=== PATIENT | male | born 1985 | race Caucasian/White ===

== ENCOUNTER 2016-10-30 22:22 | Emergency (ER) | payer MEDICAID ==
[~2016-10-30] VITALS: Ht 175.3 cm; Wt 102.5 kg
[2016-10-30 22:34] VITALS: Ht 175.3 cm; Wt 102.5 kg
[2016-10-30] MEDS ORDERED: IBUP-1542 PO (23:38)
[2016-10-30 23:46] VITALS: BP 128/72; PULSE 69; RESP 14; TEMP 98.4
--- NOTE | 2016-10-31 00:30 | RADRPT ---
PROCEDURE: Left humerus x-ray CLINICAL INDICATION: Chronic pain TECHNIQUE: AP and lateral views of the humerus were obtained. COMPARISON: None FINDINGS: There is normal mineralization. No acute fracture or dislocation is seen. There is no significant soft tissue swelling. The visualized joints are normal. RPTAT:HJJR IMPRESSION: Normal x-ray of the left humerus. Physician Sara Date Time Electronically viewed and signed by Ozzy Atkinson Physician on 10/31/2016 00:30 /
--- NOTE | 2016-10-31 02:25 | ERA ---
ER Documentation Chief Complaint Date/Time DATE: 10/31/16 TIME: 02:18 Chief Complaint left shoulder pain x 1 month, denies injury HPI Patient is a 31-year-old male presenting with chronic pain in the left elbow and left shoulder. Chief complaint being the left shoulder that has been painful for 1 month and worsen past week. Patient's pain is worse with driving and lifting. Pain improves with rest. 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 Patient is right-handed. Patient denies any trauma. Patient denies any numbness or tingling. Patient has tried ibuprofen with little relief. Pt denies weight loss, fevers, nausea, vomiting, diarrhea, constipation, hyperhidrosis, rigors, fatigue, dyspnea, malaise or depression. ROS All systems reviewed and are negative except as per history of present illness. Medications Home Meds Active Scripts Ibuprofen* (Motrin*) 600 Mg Tab, 600 MG PO Q6H Y for PAIN AND OR ELEVATED TEMP, #30 TAB Prov:RILEY HERNANDEZ PA-C 10/30/16 Allergies Allergies: Coded Allergies: No Known Allergy (Unverified , 10/30/16) PMhx/Soc Medical and Surgical Hx: pt denies Medical Hx, pt denies Surgical Hx Hx Alcohol Use: Yes Hx Substance Use: Yes (MARIJUANA) Hx Tobacco Use: Yes Smoking Status: Light tobacco smoker Physical Exam Vitals Vital Signs Date Time Temp Pulse Resp B/P Pulse Ox O2 Delivery O2 Flow Rate FiO2 10/30/16 23:46 98.4 69 14 128/72 97 Room Air 10/30/16 22:34 908.4 79 20 160/85 100 Physical Exam Const: Well-appearing 31-year-old male Head: Atraumatic Eyes: Normal Conjunctiva ENT: Normal External Ears, Nose and Mouth. Neck: Full range of motion..~ No meningismus. Resp: Clear to auscultation bilaterally Cardio: Regular rate and rhythm, no murmurs Abd: Soft, non tender, non distended. Normal bowel sounds Skin: No petechiae or rashes Back: No midline or flank tenderness Ext: No cyanosis, or edema. Pain with resisted left forearm pronation and wrist flexion. No tenderness to palpation. No pain with empty can test resisted abduction or traction of the shoulders bilaterally. Pain was not able to be reproduced in the left shoulder. Neur: Awake and alert Psych: Normal Mood and Affect Procedures/MDM Patient is a 31-year-old male who complains of chronic left shoulder pain and left elbow pain with no identifying exacerbating factors except for driving and lifting objects. Upon evaluation patient's pain in the shoulder was unable to be reproduced. Patient's pain in the left elbow was able to be reproduced with resisted forearm pronation and resisted wrist flexion. Patient denies any neuro symptoms and had a negative Phalen's test. Patient's strength was within normal limits bilaterally and patient is neurovascularly intact bilaterally. At this time I do not suspect any neurovascular involvement suspect that the most likely diagnosis is tendinopathy versus AC joint versus rheumatological. Next step attack was to get an x-ray to evaluate for bony pathology. The x-ray was within normal limits. A final differential diagnosis includes type I AC joint injury versus tendinopathy versus ligamentous injury of the elbow/ shoulder (left). We will discharge the patient with NSAIDs for pain and a recommendation to follow-up with primary care provider in the next 1-3 days for a more formal referral to an cyber security specialist. Have instructed to return to emergency department if symptoms change or worsen. Departure Diagnosis: Primary Impression: Medial epicondylitis of left elbow Additional Impression: Tendonitis of shoulder, left Condition: Stable Patient Instructions: Tendonitis Referrals: [facility] Urgent Care 7 a.m.- 11 p.m. Every Day of the Week NO APPOINTMENT OR AUTHORIZATION NEEDED Additional Instructions: Follow-up with a primary care provider for a more thorough evaluation and more formal referral to a specialist. RILEY HERNANDEZ PA-C Oct 31, 2016 02:25
== END 2016-10-30 23:45 | disposition home or self-care (01) ==
LOC: FTE 22:22
DX: M77.02 Medial epicondylitis, left elbow (principal); M75.92 Shoulder lesion, unspecified, left shoulder; F17.210 Nicotine dependence, cigarettes, uncomplicated
CPT/HCPCS: 73060